=== PATIENT | female | born 1935 | race Caucasian/White ===

== ENCOUNTER → 2016-06-03 | Outpatient (CLI) | payer MEDICARE, OTHER ==
[~2016-06-03] MED LIST: ALL DAY ALLERGY10 MG PO; ARTHRITIS PAIN650 MG PO; COLACE100 MG PO; COUMADIN ** 9/62 MG PO; COUMADIN **IA1 MG PO; COZAAR25 MG PO; IRON PO; LASIX40 M1 PO; LEVOTHROID (SY50 MCG PO; LIPITOR40 MG PO; LOVENOX 8080 MG/0.8 SUB-Q; OXYGEN M-15 INH; SINGULAIR10 MG PO; SPIRONOLACTONE50 MG PO; TOPAMAX25 MG PO; TOPROL XL25 MG PO; TRAVATAN Z OPH2.5 ML OPHTH; VITAMIN B-121000 MC1 PO
== END ==
LOC: LNHI 14:04
DX: M19.90 Unspecified osteoarthritis, unspecified site (principal); I50.42 Chronic combined systolic (congestive) and diastolic (congestive) heart failure; I48.2 Chronic atrial fibrillation; Z95.2 Presence of prosthetic heart valve